=== PATIENT | female | born 1935 | race Caucasian/White ===

== ENCOUNTER 2021-01-28 14:28 | Emergency (ER) | payer MEDICARE, SELFPAY ==
--- NOTE | ~2021-01-28 | CT_ITS ---
EXAMINATION: CT HEAD WITHOUT CONTRAST CT CERVICAL SPINE WITHOUT CONTRAST CLINICAL INFORMATION: Fall, head injury, headache, dizziness. COMPARISON: None TECHNIQUE: Contiguous axial imaging of the head was performed without the administration of IV contrast. Axial multidetector volumetric images were also performed through the cervical spine without contrast. Multiplanar reconstructed images in coronal and sagittal orientations were submitted. This CT examination was performed using dose optimization techniques as appropriate, variously including the following: *Automated exposure control. *Adjustment of mA and/or kV according to patient size (this includes techniques or standardized protocols for targeted exams where dose is matched to indication/reason for exam; i.e. extremities or head). *Use of iterative reconstruction technique. DLP: 822 mGy-cm FINDINGS: HEAD: There is no evidence of acute intracranial hemorrhage or territorial infarction. No abnormal mass-effect or midline shift. No extra-axial fluid collections. Atan-tr-emlpl matter differentiation is well preserved. The ventricles are normal in size and configuration. Bilateral basal ganglia calcification. Mild periventricular and deep white matter hypodensities suggestive of chronic microangiopathic changes. No acute calvarial fracture. The sinuses and mastoid air cells are clear. CERVICAL SPINE: Mild anterolisthesis of C6 on C7. Vertebral body alignment is otherwise maintained. Predental space is maintained. Vertebral body heights are normal. No visible acute fracture of the vertebral bodies or posterior elements. The craniocervical and atlantoaxial articulations are normal. Moderate C4-C5 disc degeneration. Disc degenerative changes to a lesser degree otherwise in the cervical spine. Multilevel prominent facet degeneration, including areas of partial osseous fusion at the facet joint. No prevertebral soft tissue swelling. No suspicious thyroid findings seen. Bilateral apical pleural-parenchymal scarring. CT/CT cervical spine wo con IMPRESSION: 1. No CT evidence of acute intracranial pathology. 2. No CT evidence of acute fracture or malalignment in the cervical spine. 3. Cervical spondylosis as detailed above. 4. Bilateral apical pleural-parenchymal scarring.
--- NOTE | ~2021-01-28 | XR_ITS ---
EXAMINATION: XR CHEST CLINICAL INFORMATION: Hypertension, leg swelling. COMPARISON: None TECHNIQUE: 2 views of the chest were obtained. FINDINGS: The lungs are well-expanded and clear. The heart size and pulmonary vascularity is normal. There is mild dextroscoliosis of dorsal spine. No lytic process. XR/XR chest 2V IMPRESSION: Unremarkable chest exam.
[2021-01-28 14:32] VITALS: BP 225/93; PULSE 78; RESP 18; TEMP 36.6; O2SAT 99; BMI 26.6
--- NOTE | 2021-01-28 16:01 | ECG_ITS ---
Test Reason : FALL Blood Pressure : / mmHG Vent. Rate : 073 BPM Atrial Rate : 073 BPM P-R Int : 156 ms QRS Dur : 076 ms QT Int : 410 ms P-R-T Axes : 072 064 068 degrees QTc Int : 451 ms Normal sinus rhythm Possible Left atrial enlargement Nonspecific ST abnormality Abnormal ECG When compared with ECG of 27-JUL-2012 12:05, No significant change was found Referred By: Sahnnon Chan Electronically Signed By:Alfred Loving
--- NOTE | 2021-01-28 16:02 | ED_ITS ---
HPI - General Adult General Chief complaint: General Medical Stated complaint: fall - head injury Time Seen by Provider: 01/28/21 15:50 Source: patient Mode of arrival: ambulatory Limitations: no limitations History of Present Illness HPI narrative: 85-year-old female with a past medical history of hypertension anxiety here with complaints of headache and dizziness. The patient tells me 3 days ago she was getting into her car and felt dizzy so she hit the right side of her head on her car door. There was no loss of consciousness. Since then she has had a generalized headache. No vision changes from baseline. No nausea, vomiting, weakness, numbness, tingling. Patient tells me that she has had occasional dizzy episodes. She recently had a Holter monitor for complaints of palpitations which showed frequent PVCs and so she was started on metoprolol 25 mg. Patient tells me since starting this she has had dizziness with position changes. She has also noticed some slight edema to her lower extremities and took an extra dose of hydrochlorothiazide today. She is on 12.5 mg b.i.d.. No weight gain, shortness of breath, chest pain. No recent travel or sick exposure.. No anticoagulation Related Data Previous Rx's Medication Instructions Recorded amlodipine [Norvasc] 2.5 mg PO DAILY #20 tab 01/28/21 Allergies Allergy/AdvReac Type Severity Reaction Status Date / Time Latex, Natural Rubber Allergy Intermediate RASH Unverified 06/28/20 14:53 [LATEX, NATURAL RUBBER] Review of Systems Review of Systems: Yes all other systems are reviewed and are negative Constitutional: Constitutional: Reports no additional constitutional complaints, Denies body ache(s), Denies chills, Denies fever(s), Reports headache(s) and Denies weakness Eyes: Eyes: Reports no additional eye complaints and Denies change in vision ENT: Reports system reviewed and no additional complaints, except as documented, Reports dizziness, Reports headache(s), Denies nasal congestion, Den ies nasal discharge and Denies neck pain Cardiovascular: Cardiovascular: Reports no additional cardiovascular complaints, Denies chest pain, Reports leg edema and Denies dyspnea Respiratory: Respiratory: Reports no additional respiratory complaints, Denies cough and Denies dyspnea Gastrointestinal: Gastrointestinal: Reports no additional gastrointestinal complaints, Denies abdominal pain, Denies diarrhea, Denies nausea and Denies vomiting Genitourinary: Genitourinary: Reports no additional female genitourinary complaints and Denies urinary incontinence Musculoskeletal: Musculoskeletal: Reports no additional musculoskeletal com plaints, Denies back pain, Denies arthralgias, Denies joint swelling, Denies neck pain, Denies numbness and Denies tingling Integumentary/Breasts: Skin/Breast: Reports system reviewed and no additional complaints, except as docu and Denies rash Neurologic: Reports system reviewed and no additional complaints, except as documented, Denies Abnormal speech present, Reports dizziness, Reports headache(s), Denies numbness, Denies tingling and Denies weakness [facility] Past Medical History Attestation statement: The following information was validated with the patient. Source: old records reviewed and nursing notes reviewed Medical History Anxiety HTN (hypertension) Social History Social History Alcohol intake: never Smoking Status: Never smoker Use of substances other than those prescribed or required for medical reasons: No Advance Directives: No Advance Directives Information Provided: No Physical Exam Vital Signs: Vital Signs: Last Vital Signs Temp 98.0 F 01/28/21 19:25 Pulse 76 01/28/21 19:25 Resp 18 01/28/21 19:25 BP 193/76 H 01/28/21 19:25 Pulse Ox 97 01/28/21 19:25 Body Mass Index 26.6 Const: General: cooperative, healthy appearing, comfortable and no acute distress Orientation/consciousness: patient oriented x3 Limitations: no limitations HENMT: Head: Yes normal to inspection and Yes Velez's sign (Right side) Ears: hearing grossly normal bilaterally, TM normal on the right and TM normal on the left General nose exam: Normal external nose present Face and sinus: Yes normal facial exam Mouth: Normal oral and palatal mucosa present Throat: Yes posterior oropharynx normal Eyes: General: appearance normal, both eyes and all related structures Visual Mcpherson: normal visual mcpherson by confrontation Alignment and Position: alignment normal Periorbital: periorbital findings normal Eyelids: Yes eyelids normal Conjunctivae: conjunctivae normal Sclerae: sclerae normal Corneas: corneas normal Pupils: Equal, round and reactive pupils present EOM: EOMs intact bilaterally Direct Ophthalmoscopy: normal light reflex and no photophobia Neck: Neck: Yes normal visual inspection, Yes full ROM and Yes no lymphadenopathy Chest: Chest palpation & inspection: normal inspection of the chest Resp: Effort & Inspection: normal respiratory effort Auscultation: clear to auscultation bilaterally Cardio: Rate: regular rate Rhythm: regular rhythm Peripheral pulses: Peripheral pulses 2+ throughout GI: Inspection: Yes normal to inspection Palpation (GI): Soft to palpation and nontender Auscultation: normal bowel sounds Back/Spine/Pelvis: Thoracic/Lumbar Spine: thoracic and lumbar spine normal to inspection Skin: General skin exam: no rashes or lesions noted Neuro: General: patient oriented x3, no focal motor deficits and normal sensation to monofilament Cranial nerves: Yes CN's II-XII intact bilaterally, Yes Equal, round and reactive pupils present, Yes Bilaterally intact EOM present, Yes Nystagmus not present, Yes Normal facial strength present, Yes Midline tongue present and Yes Normal gag reflex present Cognition (Neuro): normal cognition Speech: No Abnormal speech present Gait exam (Neuro): Normal gait present Motor exam (neuro): 5/5 motor strength present throughout Sensory Exam: Normal double simultaneous stimulation for sensation Coordination: [id number] test normal, [id number] test normal and tandem gait normal Extrem: General: Yes normal to inspection, Yes no pedal edema and Yes no calf tenderness Course Course Course Narrative: 85-year-old female here with complaints of headache, high blood pressure for the last 2 days. Patient tells me she has had headaches and she had a head injury 3 days ago. She has been having intermittent dizzy spells since starting metoprolol and this caused her to fall 3 days ago. No anticoagulation. Neuro is intact. Patient is mildly hypertensive on arrival. Will need CT head, neck, EKG, chest x-ray, labs. 2015-CT head and neck negative. Chest x-ray negative. EKG shows some nonspecific changes. Labs show a mildly elevated troponin however repeat troponin is delta. No chest pain. BNP is 214. No clinical signs symptoms concerning for fluid overload. Discussed this with the patient. She is taking hydrochlorothiazide. We discussed low-sodium diet and compression stockings. Patient's blood pressure did trend down without intervention and discharge her blood pressure is 190/80. She tells me she was taking metoprolol until a few days ago and this was discontinued by her set up [employer] due to concern that this was causing her dizziness. We discussed that she likely needs to be on an antihypertensive. We will start her on a very low dose of amlodipine. She will call her set up [employer] for follow-up this week and be monitor her blood pressures at home. Reviewed worrisome signs and symptoms and when to return to the em ergency department. Comfortable discharge home. Medical Decision Making MDM Narrative Medical decision making narrative: medication side effect, anemia, electrolyte abnormality, ACS, ICH versus lesion Medical Records Medical records reviewed: Yes I reviewed the patient's medical records. Lab Data Lab results reviewed: Yes I reviewed the patient's lab results. Result diagrams: 01/28/21 16:36 01/28/21 16:36 Labs: Lab Results 01/28/21 01/28/21 01/28/21 Range/Units 16:36 16:36 16:36 WBC 9.8 (4.8-10.8) X10*3/uL RBC 4.77 (4.20-5.50) X10*6/uL Hgb 13.8 (12.0-16.0) g/dl Hct 41.4 (37-47) % MCV 86.8 (80-98) fL MCH 28.9 (27.0-33.0) pg MCHC 33.3 (31.0-35.0) g/dl RDW 12.4 (11.0-16.0) % Plt Count 241 (160-400) X10*3/uL MPV 10.0 (9.4-12.3) fL Immature Gran % (Auto) 0.3 (0.0-0.4) % Neut % (Auto) 70.6 (45-73) % Lymph % (Auto) 18.9 L (20-40) % [place] % (Auto) 8.9 (2-11) % Eos % (Auto) 1.0 (0-4) % Baso % (Auto) 0.3 (0-2) % Lymph # (Auto) 1.8 (1.2-4.9) X10*3/uL [place] # (Auto) 0.9 (0.1-1.2) X10*3/uL Eos # (Auto) 0.1 (0.0-0.4) X10*3/uL Baso # (Auto) 0.0 (0.0-0.2) X10*3/uL Abs Immat Gran (auto) 0.03 (0.00-0.03) X10*3/uL Absolute Neuts (auto) 6.9 (2.0-8.3) X10*3/uL Absolute Nucleated RBC 0.000 (0.0-0.012) X10*3/uL Nucleated RBC % (auto) 0.0 (0.0-0.2) /100WBC Hold Blue Top SEE NOTE Sodium 139 (135-145) mmol/L Potassium 3.8 (3.3-5.1) mmol/L Chloride 96 (96-108) mmol/L Carbon Dioxide 32 H (22-29) mmol/L Anion Gap 15 (12-20) BUN 11 (9-16) mg/dL Creatinine 0.79 (0.5-1.4) mg/dL Estim Creat Clear Calc 46.2 Estimated GFR > 60 Random Glucose 94 (60-115) mg/dL Calcium 10.5 H (8.4-10.2) mg/dL Magnesium (1.6-2.6) mg/dL Total Bilirubin 0.9 (0.0-1.0) mg/dL Direct Bilirubin 0.3 (0.0-0.5) mg/dL AST 20 (5-31) U/L ALT 27 (0-31) U/L Alkaline Phosphatase 66 (39-117) U/L Troponin I High Sens (<3.5-17.0) ng/L B-Natriuretic Peptide (<100) pg/mL Total Protein 8.1 H (6.5-8.0) g/dL Albumin 4.6 (3.5-5.0) g/dL Urine Color Urine Appearance Urine pH (5.0-8.0) Ur Specific [place] (1.005-1.025) Urine Protein (NEG-TRACE) MG/DL Urine Glucose (UA) (NEG) MG/DL Urine Ketones (NEG) MG/DL Urine Blood (NEG) Urine Nitrite (NEG) Ur Leukocyte Esterase (NEG) Urine RBC (0) /HPF Urine WBC (0-4) /HPF Ur Squamous Epith Cells /LPF Urine Bacteria /LPF 01/28/21 01/28/21 01/28/21 Range/Units 16:36 16:36 18:16 WBC (4.8-10.8) X10*3/uL RBC (4.20-5.50) X10*6/uL Hgb (12.0-16.0) g/dl Hct (37-47) % MCV (80-98) fL MCH (27.0-33.0) pg MCHC (31.0-35.0) g/dl RDW (11.0-16.0) % Plt Count (160-400) X10*3/uL MPV (9.4-12.3) fL Immature Gran % (Auto) (0.0-0.4) % Neut % (Auto) (45-73) % Lymph % (Auto) (20-40) % [place] % (Auto) (2-11) % Eos % (Auto) (0-4) % Baso % (Auto) (0-2) % Lymph # (Auto) (1.2-4.9) X10*3/uL [place] # (Auto) (0.1-1.2) X10*3/uL Eos # (Auto) (0.0-0.4) X10*3/uL Baso # (Auto) (0.0-0.2) X10*3/uL Abs Immat Gran (auto) (0.00-0.03) X10*3/uL Absolute Neuts (auto) (2.0-8.3) X10*3/uL Absolute Nucleated RBC (0.0-0.012) X10*3/uL Nucleated RBC % (auto) (0.0-0.2) /100WBC Hold Blue Top Sodium (135-145) mmol/L Potassium (3.3-5.1) mmol/L Chloride (96-108) mmol/L Carbon Dioxide (22-29) mmol/L Anion Gap (12-20) BUN (9-16) mg/dL Creatinine (0.5-1.4) mg/dL Estim Creat Clear Calc Estimated GFR Random Glucose (60-115) mg/dL Calcium (8.4-10.2) mg/dL Magnesium 2.0 (1.6-2.6) mg/dL Total Bilirubin (0.0-1.0) mg/dL Direct Bilirubin (0.0-0.5) mg/dL AST (5-31) U/L ALT (0-31) U/L Alkaline Phosphatase (39-117) U/L Troponin I High Sens 8.5 (<3.5-17.0) ng/L B-Natriuretic Peptide 214 H (<100) pg/mL Total Protein (6.5-8.0) g/dL Albumin (3.5-5.0) g/dL Urine Color YELLOW Urine Appearance CLEAR Urine pH 7.5 (5.0-8.0) Ur Specific [place] 1.010 (1.005-1.025) Urine Protein NEG (NEG-TRACE) MG/DL Urine Glucose (UA) NEG (NEG) MG/DL Urine Ketones NEG (NEG) MG/DL Urine Blood NEG (NEG) Urine Nitrite NEG (NEG) Ur Leukocyte Esterase 1+ H (NEG) Urine RBC 0 (0) /HPF Urine WBC 5-9 H (0-4) /HPF Ur Squamous Epith Cells 1+ /LPF Urine Bacteria TRACE /LPF 01/28/21 Range/Units 19:29 WBC (4.8-10.8) X10*3/uL RBC (4.20-5.50) X10*6/uL Hgb (12.0-16.0) g/dl Hct (37-47) % MCV (80-98) fL MCH (27.0-33.0) pg MCHC (31.0-35.0) g/dl RDW (11.0-16.0) % Plt Count (160-400) X10*3/uL MPV (9.4-12.3) fL Immature Gran % (Auto) (0.0-0.4) % Neut % (Auto) (45-73) % Lymph % (Auto) (20-40) % [place] % (Auto) (2-11) % Eos % (Auto) (0-4) % Baso % (Auto) (0-2) % Lymph # (Auto) (1.2-4.9) X10*3/uL [place] # (Auto) (0.1-1.2) X10*3/uL Eos # (Auto) (0.0-0.4) X10*3/uL Baso # (Auto) (0.0-0.2) X10*3/uL Abs Immat Gran (auto) (0.00-0.03) X10*3/uL Absolute Neuts (auto) (2.0-8.3) X10*3/uL Absolute Nucleated RBC (0.0-0.012) X10*3/uL Nucleated RBC % (auto) (0.0-0.2) /100WBC Hold Blue Top Sodium (135-145) mmol/L Potassium (3.3-5.1) mmol/L Chloride (96-108) mmol/L Carbon Dioxide (22-29) mmol/L Anion Gap (12-20) BUN (9-16) mg/dL Creatinine (0.5-1.4) mg/dL Estim Creat Clear Calc Estimated GFR Random Glucose (60-115) mg/dL Calcium (8.4-10.2) mg/dL Magnesium (1.6-2.6) mg/dL Total Bilirubin (0.0-1.0) mg/dL Direct Bilirubin (0.0-0.5) mg/dL AST (5-31) U/L ALT (0-31) U/L Alkaline Phosphatase (39-117) U/L Troponin I High Sens 10.6 (<3.5-17.0) ng/L B-Natriuretic Peptide (<100) pg/mL Total Protein (6.5-8.0) g/dL Albumin (3.5-5.0) g/dL Urine Color Urine Appearance Urine pH (5.0-8.0) Ur Specific [place] (1.005-1.025) Urine Protein (NEG-TRACE) MG/DL Urine Glucose (UA) (NEG) MG/DL Urine Ketones (NEG) MG/DL Urine Blood (NEG) Urine Nitrite (NEG) Ur Leukocyte Esterase (NEG) Urine RBC (0) /HPF Urine WBC (0-4) /HPF Ur Squamous Epith Cells /LPF Urine Bacteria /LPF Imaging Data Chest x-ray: Attestation: I personally reviewed and interpreted this imaging study as follows: Radiologist's impression: EXAMINATION: XR CHEST CLINICAL INFORMATION: Hypertension, leg swelling. COMPARISON: None TECHNIQUE: 2 views of the chest were obtained. FINDINGS: The lungs are well-expanded and clear. The heart size and pulmonary vascularity is normal. There is mild dextroscoliosis of dorsal spine. No lytic process. XR/XR chest 2V IMPRESSION: Unremarkable chest exam. CT cervical/head: Attestation: I personally reviewed and interpreted this imaging study as follows: Radiologist's impression: IMPRESSION: 1. No CT evidence of acute intracranial pathology. 2. No CT evidence of acute fracture or malalignment in the cervical spine. 3. Cervical spondylosis as detailed above. 4. Bilateral apical pleural-parenchymal scarring. ECG Data Attestation: I personally reviewed and interpreted this ECG as follows: Interpretation: NSR with rate 73, normal pr, normal qrs, normal qtc, nonspecific st changes leads v1, v2 Discharge Plan Discharge Clinical Impression: Hypertension, Head injury, Elevated brain natriuretic peptide (BNP) level Patient Disposition: Home, Self-Care Instructions: Head Injury (ED), Hypertension (ED) Additional Instructions: Continue your hydrochlorothiazide Low sodium diet, compression stockings as discussed Start norvasc tomorow morning. Your blood pressure was elevated today (225/93, 192/80, 193/76). Continue to monitor at home. Follow-up with your set up [employer] this week as discussed Prescriptions: New amlodipine [Norvasc] 2.5 mg tablet 2.5 mg PO DAILY Qty: 20 RF: 0 Referrals: Mauricio Stone MD [Primary Care Provider] - 2 days Interventions: ED Discharge Assessment Last Done: 01/28/21 20:20 Discharge Date/Time: 01/28/21 20:20
[2021-01-28 16:42] LABS: MANUAL DIFF FLAG NO
[2021-01-28 16:45] LABS: Basophils Percent Auto 0.3 % (0-2); Eosinophils Absolute Auto 0.1 X10*3/uL (0.0-0.4); Hematocrit 41.4 % (37-47); Hemoglobin 13.8 g/dl (12.0-16.0); Imm Gran Abs Auto 0.03 X10*3/uL (0.00-0.03); Imm Gran Pct Auto 0.3 % (0.0-0.4); Lymphocytes Absolute Auto 1.8 X10*3/uL (1.2-4.9); Lymphocytes Percent Auto 18.9 % (20-40); Mean Corpuscular HGB Conc 33.3 g/dl (31.0-35.0); Mean Corpuscular Hemoglobin 28.9 pg (27.0-33.0); Mean Corpuscular Volume 86.8 fL (80-98); Monocytes Absolute Auto 0.9 X10*3/uL (0.1-1.2); Monocytes Percent Auto 8.9 % (2-11); Neutrophils Absolute Auto 6.9 X10*3/uL (2.0-8.3); Neutrophils Percent Auto 70.6 % (45-73); Platelet Count 241 X10*3/uL (160-400); Red Blood Count 4.77 X10*6/uL (4.20-5.50); Red Cell Distribution Width 12.4 % (11.0-16.0); White Blood Count 9.8 X10*3/uL (4.8-10.8)
[2021-01-28 17:34] LABS: Alanine Aminotransferase 27 U/L (0-31); Albumin Level 4.6 g/dL (3.5-5.0); Alkaline Phosphatase 66 U/L (39-117); Anion Gap 15 (12-20); Aspartate Amino Transferase 20 U/L (5-31); Bilirubin Direct 0.3 mg/dL (0.0-0.5); Bilirubin Total 0.9 mg/dL (0.0-1.0); Blood Urea Nitrogen 11 mg/dL (9-16); Calcium 10.5 mg/dL (8.4-10.2); Carbon Dioxide 32 mmol/L (22-29); Chloride 96 mmol/L (96-108); Creatinine Clr Calc Pharmacy 46.2; Estimated Glomerular Filt Rate > 60; Glucose Random 94 mg/dL (60-115); Potassium 3.8 mmol/L (3.3-5.1); Sodium 139 mmol/L (135-145); Total Protein 8.1 g/dL (6.5-8.0)
[2021-01-28 17:35] LABS: B Type Natriuretic Peptide 214 pg/mL (<100); Troponin-I High Sensitivity 8.5 ng/L (<3.5-17.0)
[2021-01-28 18:36] LABS: Glucose Urine UA NEG (NEG); Leukocyte Esterase Urine 1+ (NEG); Nitrite Urine NEG (NEG); PH 7.5 (5.0-8.0); UACC Culture Trigger YES; Urine Blood NEG (NEG); Urine Ketones NEG (NEG); Urine Protein NEG (NEG-TRACE)
[2021-01-28 18:43] LABS: Appearance Urine CLEAR; Color Urine YELLOW
[2021-01-28 18:57] VITALS: BP 192/80; PULSE 90; RESP 20
[2021-01-28 19:15] LABS: Bacteria Urine TRACE /LPF; RBC Urine 0 /HPF (0); Squamous Epithelial Cell Urine 1+ /LPF
[2021-01-28 19:25] VITALS: BP 193/76; PULSE 76; RESP 18; TEMP 36.7; O2SAT 97
[2021-01-28 20:08] LABS: Troponin-I High Sensitivity 10.6 ng/L (<3.5-17.0)
== END 2021-01-28 20:20 | disposition home or self-care (01) ==
PROVIDERS: Nurse Practitioner Family; Emergency Provider Emergency Medicine; PCP Family Medicine
DX: S09.90XA Unspecified injury of head, initial encounter (principal); G44.309 Post-traumatic headache, unspecified, not intractable; R60.0 Localized edema; M54.2 Cervicalgia; M54.5 Low back pain; I10 Essential (primary) hypertension; Y29.XXXA Contact with blunt object, undetermined intent, initial encounter; Y93.9 Activity, unspecified; Y92.810 Car as the place of occurrence of the external cause; Y99.9 Unspecified external cause status; Z79.899 Other long term (current) drug therapy; R79.89 Other specified abnormal findings of blood chemistry
CPT/HCPCS: 36415; 70450; 71046; 72125; 80048; 80076; 81001; 81003; 83735; 83880; 84484; 85025; 87086; 93005; 99284

== ENCOUNTER 2023-01-28 07:56 | Outpatient (REF) | payer MEDICARE, SELFPAY ==
--- NOTE | ~2023-01-28 | US_ITS ---
EXAMINATION: US VENOUS ULTRASOUND WITH DOPPLER LOWER EXTREMITY, RIGHT CLINICAL INFORMATION: Swelling, localized edema. COMPARISON: None available. TECHNIQUE: Ultrasound of the deep veins is performed from the hip to the calf with compression sonography and color and pulse Doppler assessment. Spectral analysis with color-flow imaging is performed. FINDINGS: The common femoral vein is compressible and exhibits a normal phasic waveform; this suggests that the iliac veins are widely patent above. Within the proximal thigh, the visualized profunda femoris vein is normal. The examined greater saphenous vein and saphenofemoral junction are normal. Superficial femoral vein is patent in the proximal, mid and distal thigh. Popliteal vein is normal to the level of the trifurcation. On compression orellana scale and color Doppler images, the visualized deep calf veins are grossly patent. No evidence of Betancourt's cyst. US/US venous duplex LE RT IMPRESSION: No evidence of deep vein thrombosis in the right lower extremity.
== END 2023-01-28 07:57 | disposition home or self-care (01) ==
LOC: HO.US 07:56
PROVIDERS: PCP Family Medicine; Visit Provider Nurse Practitioner Family
DX: R60.0 Localized edema (principal); M79.604 Pain in right leg
CPT/HCPCS: 93971

== ENCOUNTER → 2023-02-17 14:09 | Outpatient (BNVA) | payer MEDICARE, SELFPAY | PROVIDERS: PCP Family Medicine; Visit Provider Surgery Vascular Surgery | DX: I73.9 Peripheral vascular disease, unspecified (principal); I83.11 Varicose veins of right lower extremity with inflammation; I65.23 Occlusion and stenosis of bilateral carotid arteries | CPT/HCPCS: 99202 ==

== ENCOUNTER 2023-03-04 12:39 | Outpatient (REF) | payer MEDICARE, SELFPAY ==
--- NOTE | ~2023-03-04 | US_ITS ---
EXAMINATION: US EXTRACRANIAL CAROTID DUPLEX, BILATERAL CLINICAL INFORMATION: Carotid stenosis. History of right endarterectomy in 2006. COMPARISON: Carotid ultrasound 07/27/2018. TECHNIQUE: Real-time ultrasound and Doppler techniques (integrating B-mode 2-D vascular images, Doppler spectral analysis and color-flow Doppler imaging) were utilized to interrogate the extracranial carotid arteries, the vertebral arteries and proximal subclavian arteries bilaterally. The degree of stenosis is determined by criteria similar to NASCET. FINDINGS: Right Side: 1. There is mild atherosclerotic plaque seen in the bifurcation/proximal ICA region. 2. The common carotid artery PSV proximally is 64 cm/s and distally 65 cm/s. 3. The proximal internal carotid artery velocities are 54 cm/s systolic and 13 cm/s diastolic. 4. The proximal external carotid artery PSV is 118 cm/s. 5. The vertebral artery shows antegrade flow. 6. The subclavian artery waveforms are normal. Left Side: 1. There is moderate atherosclerotic plaque seen in the bifurcation/proximal ICA region. 2. The common carotid artery PSV proximally is 73 cm/s and distally 104 cm/s. 3. The proximal internal carotid artery velocities are 86 cm/s systolic and 17 cm/s diastolic. 4. The proximal external carotid artery PSV is 104 cm/s. 5. The vertebral artery shows antegrade flow. 6. The subclavian artery waveforms are normal. US/US carotid duplex BI IMPRESSION: 1. RIGHT: Minimal, non-hemodynamically significant stenosis of the proximal right internal carotid artery corresponding to a 0-49% stenosis by velocity criteria. 2. LEFT: Minimal, non-hemodynamically significant stenosis of the proximal left internal carotid artery corresponding to a 0-49% stenosis by velocity criteria. 3. There is no change in the category severity of disease when compared to the previous study dated 07/27/2018.
--- NOTE | ~2023-03-04 | US_ITS ---
EXAMINATION: US VENOUS ULTRASOUND WITH DOPPLER LOWER EXTREMITY, BILATERAL CLINICAL INFORMATION: EXAMINATION: RIGHT and LEFT LOWER EXTREMITY VENOUS ULTRASOUND (Reflux Exam) CLINICAL INDICATION: leg pain and varicose veins. History of left greater saphenous vein stripping many years ago. COMPARISON: None TECHNIQUE: Color flow triplex imaging and compression Doppler was performed to evaluate both the deep and the superficial systems bilaterally. To evaluate the superficial system, the examination was performed in the upright position. Color-flow Doppler ultrasound and compression ultrasound were utilized. In addition, maneuvers were utilized to demonstrate reflux. FINDINGS: 1. DEEP VENOUS ULTRASOUND OF THE RIGHT LOWER EXTREMITY: Respiratory variation, normal compression and augmented flow are noted in the right common femoral vein as well as the right popliteal vein and there is no evidence of deep venous thrombosis at these locations. There is no evidence of reflux in the deep system in either the common femoral vein or the popliteal vein. There is no evidence of a Betancourt's cyst. 2. SUPERFICIAL ULTRASOUND WITH DOPPLER OF RIGHT LOWER EXTREMITY: The right great saphenous vein at the saphenofemoral junction measures 6 mm, at the mid thigh 5 mm, [id number] 3 mm, [id number] 2 mm, at mid calf 2 mm and at the ankle measures 2 mm. There is significant right greater saphenous vein reflux. This measures greatest 2.4 seconds in the mid thigh and mid calf. There is an accessory right greater saphenous vein that measures 4 to 6 mm and demonstrates 2 seconds reflux. The right small saphenous vein measures 2 mm and shows no reflux. Project Reservoir Engineer in the distal calf measuring 2 mm with 1.5 second reflux. Project Reservoir Engineer in the proximal calf measuring 2 mm without reflux. The prostate is in the thigh and calf measuring 3 to 4 mm with reflux, maximum 2.5 seconds in the mid calf. 3. DEEP VENOUS ULTRASOUND OF THE LEFT LOWER EXTREMITY: Respiratory variation, normal compression and augmented flow are noted in the left common femoral vein as well as the left popliteal vein and there is no evidence of deep venous thrombosis at these locations. There is no evidence of reflux in the deep system in either the common femoral vein or the popliteal vein. . There is no evidence of a Betancourt's cyst. 4. SUPERFICIAL ULTRASOUND WITH DOPPLER OF LEFT LOWER EXTREMITY: Left great saphenous vein at the saphenofemoral junction measures 5 mm. The remainder of the left greater saphenous vein is not seen. There is no reflux demonstrated in the left great saphenous vein. The left small saphenous vein measures 1 mm and shows no reflux. There is a varicosity at the knee measuring 2 mm. This demonstrates 2.4 seconds reflux. US/US venous duplex LE BI IMPRESSION: 1. No evidence of reflux or thrombus in the common femoral veins or popliteal veins bilaterally. 2. Right: Significant right greater saphenous vein reflux. Reflux in the lateral accessory right greater saphenous vein. Reflux in a cotton ball bagger in the calf and multiple varicosities in the thigh and calf. 3. Left: Left greater saphenous vein not seen post stripping. Reflux in a varicosity at the knee. COMPARISON: None available. TECHNIQUE: Ultrasound of the deep veins is performed from the hip to the calf with compression sonography and color and pulse Doppler assessment. Spectral analysis with color-flow imaging is performed. FINDINGS: RIGHT: There is normal venous compression and respiratory variation and augmented flow. The visualized common femoral vein, superficial femoral vein, profunda femoral vein, popliteal vein, and the trifurcation region shows no evidence of deep venous thrombosis. There is no significant popliteal fossa cyst. LEFT: There is normal venous compression and respiratory variation and augmented flow. The visualized common femoral vein, superficial femoral vein, profunda femoral vein, popliteal vein, and the trifurcation region shows no evidence of deep venous thrombosis. There is no significant popliteal fossa cyst. If the patient's symptoms persist, followup ultrasound in 5 days 7 days might be of value to exclude proximal propagation from a non-visualized calf vein. IMPRESSION: No DVT demonstrated in the lower extremity.
== END 2023-03-04 12:40 | disposition home or self-care (01) ==
LOC: HO.US 12:39
PROVIDERS: PCP Family Medicine; Visit Provider Surgery Vascular Surgery
DX: I65.23 Occlusion and stenosis of bilateral carotid arteries (principal); I83.11 Varicose veins of right lower extremity with inflammation
CPT/HCPCS: 93880; 93970

== ENCOUNTER → 2023-03-19 12:42 | Outpatient (BNVA) | payer MEDICARE, SELFPAY | PROVIDERS: PCP Family Medicine; Visit Provider Surgery Vascular Surgery | DX: I83.11 Varicose veins of right lower extremity with inflammation (principal) | CPT/HCPCS: 99212 ==

== ENCOUNTER 2023-05-01 10:19 | Outpatient (AMB) | payer MEDICARE, SELFPAY ==
--- NOTE | 2023-05-01 10:30 | A.OFFVIS_ITS ---
Intake Intake Visit Reasons: Right GSV Venaseal Intake Note: Patient is here for a Right GSV Venaseal Allergies Latex, Natural Rubber [LATEX, NATURAL RUBBER] Allergy (Intermediate, Verified 05/01/23 10:30) [facility] Medical History Anxiety HTN (hypertension) Social History Alcohol intake: never Office Procedures Vascular Office Procedure Details Details: Diagnosis: Right Leg varicose veins with inflammation Procedure: Endovenous Ablation of the right Great Saphenous Vein with VenaSeal Closure System Anesthesia: Local infiltration 5 cc, Estimated Blood Loss: min Specimen: none Duplex ultrasound was used to map out the insufficient saphenous vein, and access was determined and marked on the overlying skin. The depth and diameter of the vein(s) to be treated was documented. The patient was placed supine on the procedure table and the leg was prepped and draped using sterile technique. Ultasound guidance was again used to localize the access site. 1% lidocaine was injected as a local anesthetic in the subcutaneous tissues at the target location in the GSV in the lower leg. Using ultrasound guidance, access was gained at this location with the 19 gauge thin walled access needle and followed by introduction of a short guidewire, location confirmed with ultrasound. A small, 3 mm incision was made at the access site to allow for introduction and placement of the 7 Fr x7cm introducer/dilator. The dilator and guidewire were removed. The 0.035 guidewire from the VenaSeal kit was then introduced and positioned at the saphenofemoral junction using ultrasound guidance. The 80 cm 7 Fr introducer sheath/dilator was positioned 5cm from the saphenofemoral junction. The guidewire and dilator were removed, and the remaining sheath was flushed with sterile saline, with the syringe remaining in place prior to the next steps. The cyanoacrylate adhesive was precisely primed into the 5 F delivery catheter and this catheter/syringe combination was attached within the dispenser gun. This assembly was introduced through the 7F sheath and positioned 5 cm caudal of the saphenofemoral junction under ultrasound guidance. The steps from the IFU were followed for dispensing amounts, locations and compression times, 2 aliquots proximally with 3 minutes of compression, and 1 aliquot every 3 cm distally with 30 sec of compression along the course of the vessel. Following the last injection and compression sequence, the catheter and introducer sheath were pulled out from the access site. Hemostasis was achieved with manual compression and an adhesive bandage was applied to the incision. Ultrasound confirmed complete coaptation and closure of the treated segments of the GSV, and the absence of any DVT at the saphenofemoral junction. Treatment time was approximately 5 minutes and the vein length treated was 25 cm. The drapes were removed and the patient cleaned and prepared for discharge. Post op ultrasound check is scheduled for 48-72 hours and the patient was given written post-op instructions. 05785 - Endoven Ther Chem Adhes 1st All charges added?: Procedure code (CPT) selection complete Coding Level of Care Code Procedure Only Diagnoses CPT Codes Details - Vascular 3: 33621 - Endoven Ther Chem Adhes 1st ([id number])
== END 2023-05-01 11:41 | disposition home or self-care (01) ==
PROVIDERS: PCP Family Medicine; Visit Provider Surgery Vascular Surgery
DX: I83.11 Varicose veins of right lower extremity with inflammation (principal)
CPT/HCPCS: 36482

== ENCOUNTER → 2023-05-01 10:19 | Outpatient (BNVA) | payer MEDICARE, SELFPAY | PROVIDERS: PCP Family Medicine; Visit Provider Surgery Vascular Surgery | DX: I83.11 Varicose veins of right lower extremity with inflammation (principal) | CPT/HCPCS: 36482 ==

== ENCOUNTER 2023-05-04 13:10 | Outpatient (REF) | payer MEDICARE, SELFPAY ==
--- NOTE | ~2023-05-04 | US_ITS ---
EXAMINATION: TRIPLEX SCANNING OF RIGHT LOWER EXTREMITY; SUPERFICIAL ULTRASOUND WITH DOPPLER OF RIGHT LOWER EXTREMITY CLINICAL INFORMATION: Status post ablation the right great saphenous vein . COMPARISON: 03/04/2023. TECHNIQUE: Color flow triplex imaging and compression Doppler were performed as well as superficial ultrasound with Doppler. FINDINGS: TRIPLEX SCANNING OF RIGHT LOWER EXTREMITY: Respiratory variation, normal compression and augmented flow are noted throughout the lower extremity. The visualized common femoral vein, femoral vein, profunda femoral vein, popliteal vein and the calf veins show no evidence of deep venous thrombosis. There is no evidence of Betancourt's cyst. SUPERFICIAL ULTRASOUND WITH DOPPLER OF RIGHT LOWER EXTREMITY: The right great saphenous vein is occluded from the presumed access site to just before the saphenofemoral junction. There is no extension of thrombus into the deep system. US/US venous duplex LE RT IMPRESSION: 1. Normal triplex scan of the right without evidence of deep venous thrombosis. 2. Excellent appearance status post ablation of the right great saphenous vein.
== END 2023-05-04 13:11 | disposition home or self-care (01) ==
LOC: HO.US 13:10
PROVIDERS: PCP Family Medicine; Visit Provider Surgery Vascular Surgery
DX: M79.604 Pain in right leg (principal)
CPT/HCPCS: 93971

== ENCOUNTER 2023-06-01 12:55 | Outpatient (AMB) | payer MEDICARE, SELFPAY ==
--- NOTE | 2023-06-01 13:03 | A.OFFVIS_ITS ---
Intake Vital Signs 06/01/23 13:04 Height 5 ft Weight 135 lb BMI 26.4 Intake Visit Reasons: 2 week follow up Right GSV Venaseal 05/01/23 Intake Note: follow up Right GSV Venaseal 05/01/23, pt states she has been walking more and has lost some weight, leg feels good, still has some buldging VV on Right LE Accompanied by: Self / Same As Patient Allergies Latex, Natural Rubber [LATEX, NATURAL RUBBER] Allergy (Intermediate, Verified 06/01/23 13:11) RASH HPI 2 week follow up Right GSV Venaseal 05/01/23 HPI Details Very pleasant 87-year-old female presents for follow-up status post right great saphenous vein ablation. She reports in general in improvement. Swelling and discomfort have decreased. She notes that she does have a right inner thigh varicosity which have been a source of discomfort for her. She now presents for routine postprocedure follow-up. She had a postprocedure ultrasound which was negative for DVT. [facility] Medical History Anxiety HTN (hypertension) Social History Alcohol intake: never Review of Systems Const Reports as per HPI ENT Reports no additional complaints Card Denies chest pain, Denies chest pain at rest and Denies chest pain with activity Resp Denies chest congestion and Denies cough GI Reports no additional complaints Musc Details: pain over varicosities, aching of lower extremities, swelling, cramping, heaviness and tiredness, itching Denies abnormal gait Skin/Breast Reports pruritus and Denies wounds Neuro Reports no additional complaints and Denies abnormal gait Psych Denies no additional complaints Physical Exam Vital Signs: BMI result Body Mass Index 26.4 Const General: cooperative, healthy appearing and comfortable Orientation/consciousness: oriented to person, oriented to place and oriented to time Neck Carotids: no bruits Chest Chest palpation & inspection: normal inspection of the chest and normal palpation of entire chest wall Resp Effort & Inspection: normal respiratory effort and able to speak in complete sentences Cardio Rate: regular rate Heart sounds: S1 normal heart sound present and S2 normal heart sound present Peripheral pulses: Peripheral pulses 2+ throughout GI Inspection: Yes normal to inspection Skin Other: +1 edema, large rope-like varicosities greater than 4 mm - right medial thigh General skin exam: dry skin Neuro General: oriented to person, oriented to place and oriented to time Extrem Right lower extremity: full ROM, normal capillary refill and edema Left lower extremity: full ROM, normal capillary refill and edema Psych Mental Status: mental status grossly normal Assessment & Plan Assessment & Plan (1) Varicose veins of right lower extremity with inflammation: Code(s): I83.11 - Varicose veins of right lower extremity with inflammation Plan: In short patient has done well with her right leg ablation. She does have this medial thigh which is not a source of discomfort for her. At the current time we did discuss routine conservative measures including compression elevation and exercise. She will follow up with us on an as-needed basis. Thank you for allowing us to assist in her care. If there are any questions or concerns please do not hesitate to contact us. The patient had an opportunity to ask questions regarding the treatment plan. All questions were answered. Imaging studies, laboratory studies and physical exam results were discussed and reviewed in detail. No major barriers to understanding were identified. The patient expressed understanding and agreement with the above treatment plan. The patient is aware they should contact our office by phone for worsening of the current condition or the appearance of new symptoms. Thank you for allowing me to participate in the vascular care of this patient. If you have any questions or concerns regarding the treatment for the above condition please do not hesitate to contact me. The office telephone contact is [phone]. This note is constructed using voice recognition software. While every effort has been made to ensure accuracy, ancillary services manager therapy errors may have been included. Thank you for allowing me to participate in the care of your patient. Yours sincerely, Kranthi Villalobos MD, FACS, R.P.V.I. Coding Level of Care Code Est Pt Level 4 (18980) Diagnoses Varicose veins of right lower extremity with inflammation I83.11
[2023-06-01 13:04] VITALS: BMI 26.4
== END 2023-06-01 13:27 | disposition home or self-care (01) ==
PROVIDERS: PCP Family Medicine; Visit Provider Surgery Vascular Surgery
DX: I83.11 Varicose veins of right lower extremity with inflammation (principal)
CPT/HCPCS: 99213

== ENCOUNTER → 2023-06-01 12:55 | Outpatient (BNVA) | payer MEDICARE, SELFPAY | PROVIDERS: PCP Family Medicine; Visit Provider Surgery Vascular Surgery | DX: I83.11 Varicose veins of right lower extremity with inflammation (principal) | CPT/HCPCS: 99212 ==

== ENCOUNTER 2023-11-23 11:05 | Outpatient (REF) | payer MEDICARE, SELFPAY ==
[2023-11-23 12:15] VITALS: BP 141/74; PULSE 71; RESP 18; TEMP 36.3; O2SAT 99
[2023-11-23 13:08] VITALS: BMI 25.7
== END 2023-11-23 11:06 | disposition home or self-care (01) ==
LOC: HO.MS 11:05
PROVIDERS: PCP Family Medicine; Visit Provider Ophthalmology
DX: L98.9 Disorder of the skin and subcutaneous tissue, unspecified (principal); Z53.9 Procedure and treatment not carried out, unspecified reason

== ENCOUNTER 2023-12-07 10:24 | Outpatient (REF) | payer MEDICARE, SELFPAY ==
[2023-12-07 12:30] VITALS: BP 190/80; PULSE 71; RESP 16; TEMP 36.8; O2SAT 98
[2023-12-07 15:45] VITALS: BMI 27.4
== END 2023-12-07 10:25 | disposition home or self-care (01) ==
LOC: HO.MS 10:24
PROVIDERS: PCP Family Medicine; Visit Provider Ophthalmology
PROC: (CPT 11642; principal; 2023-12-07 11:30)
DX: C44.319 Basal cell carcinoma of skin of other parts of face (principal); L98.8 Other specified disorders of the skin and subcutaneous tissue
CPT/HCPCS: 11642; 88305; 88331; 88332

== ENCOUNTER 2025-03-21 15:45 | Emergency (ER) | payer MEDICARE, SELFPAY ==
--- NOTE | ~2025-03-21 | CT_ITS ---
CLINICAL HISTORY: fall +HS CT cervical spine without contrast Comparison: None Findings: Mild multilevel anterolisthesis, degenerative. No fracture. No severe central spinal canal stenosis. No epidural hematoma. Normal thickness of the prevertebral soft tissues. Mild biapical scarring.. Impression: No acute findings. This document has been electronically signed by: Lakisha Rosario MD on 03/21/2025 17:38:56
--- NOTE | ~2025-03-21 | CT_ITS ---
CLINICAL HISTORY: fall w +HS CT head without contrast Comparison: None Findings: No acute hemorrhage. Basal ganglia calcifications. No extra-axial fluid collection. No hydrocephalus, mass-effect or herniation. Vance-white differentiation is maintained. There is patchy hypoattenuation of the periventricular and deep white matter, which is most likely the sequela of moderate chronic small vessel ischemic disease. No acute orbital pathology. Posterior parietal/occipital scalp hematoma measuring 1.3 cm in thickness with associated laceration. 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 No fracture. The visualized paranasal sinuses are predominantly clear. The mastoid air cells are clear. Impression: No acute intracranial findings. This document has been electronically signed by: Lakisha Rosario MD on 03/21/2025 17:47:03
[2025-03-21 16:03] VITALS: BP 170/76; BP 183/68; PULSE 79; PULSE 80; RESP 20; TEMP 37.1; O2SAT 97; O2SAT 99; BMI 29.2
[2025-03-21 16:11] VITALS: BP 183/68; PULSE 79; RESP 20; TEMP 37.1; O2SAT 97
--- NOTE | 2025-03-21 16:23 | ED.HEATRA ---
HPI - Head Injury General Chief complaint: Head Injury Stated complaint: fall w/ head strike, -loc/thinners Time Seen by Provider: 03/21/25 15:53 Source: patient, EMS, RN notes reviewed and old records reviewed Mode of arrival: EMS History of Present Illness ED Provider: Asia Tobin PA-C HPI Narrative: 89-year-old female with a past medical history of anxiety, HTN, PAD, on 83 ASA presenting to the ED complaining of headache and head injury s/p mechanical trip and fall backwards onto asphalt after being scared by dog at the [facility]. States fell backwards after dog came towards her barking. Denies LOC. Denies neck/ back pain, CP/ SOB, lightheadedness /dizziness, vision change or loss, nausea or vomiting. Denies symptoms prior to fall. tetanus unknown Related Data Home Medications ?Medication ?Instructions ?Recorded ?Confirmed B-complex with vitamin C 1 cap PO DAILY 02/17/23 aspirin 81 mg chewable tablet 81 mg PO DAILY 02/17/23 cholecalciferol (vitamin D3) 10 10 mcg PO DAILY 02/17/23 mcg (400 unit) capsule flaxseed oil 1,000 mg capsule 1,000 mg PO DAILY 02/17/23 hydrochlorothiazide 12.5 mg capsule mg PO 02/17/23 multivitamin 1 tab PO DAILY 02/17/23 paroxetine HCl 10 mg tablet 10 mg PO DAILY 02/17/23 pravastatin 10 mg tablet 10 mg PO DAILY 02/17/23 Previous Rx's ?Medication ?Instructions ?Recorded amlodipine 2.5 mg tablet (Norvasc) 2.5 mg PO DAILY #20 tabs 01/28/21 acetaminophen 500 mg tablet 500 mg PO Q6H PRN fever or pain 03/21/25 (Tylenol Extra Strength) #14 tabs bacitracin 500 unit/gram topical 1 appl topical BID #30 grams 03/21/25 ointment Allergies Allergy/AdvReac Type Severity Reaction Status Date / Time Latex, Natural Rubber Allergy Intermediate RASH Verified 03/21/25 16:09 [LATEX, NATURAL RUBBER] Review of Systems Review of Systems: Yes all other systems are reviewed and are negative Constitutional: Constitutional: Reports as per HPI Neurologic: Denies Abnormal speech present PMFSH Past Medical History Attestation statement: The following information was validated with the patient. Source: old records reviewed Medical History Anxiety HTN (hypertension) Social History Social History Unable to assess alcohol history related to: Unknown Alcohol intake: never Smoked in Last 30 Days: No Use of substances other than those prescribed or required for medical reasons: No Advance Directives: No Advance Directives Information Provided: No Do you have a plan to hurt others: No Plan Physical Exam Vital Signs: Vital Signs: Last Vital Signs Temp 98.8 F 03/21/25 16:11 Pulse 79 03/21/25 16:11 Resp 20 03/21/25 16:11 BP 183/68 H 03/21/25 16:11 Pulse Ox 97 03/21/25 16:11 O2 Del Method Room Air 03/21/25 16:11 BMI result Body Mass Index 29.2 Const: General: cooperative, healthy appearing and no acute distress Orientation/consciousness: patient oriented x3 Limitations: no limitations HEENT: Other: Large hematoma noted to posterior scalp with overlying abrasion. Bleeding controlled at this time. no palpable step-off Head: Yes normal to inspection, Yes atraumatic, No Velez's sign and No raccoon eyes Ears: hearing grossly normal bilaterally General nose exam: Normal external nose present Face and sinus: Yes normal facial exam Mouth: Normal oral and palatal mucosa present and no drooling Throat: Yes posterior oropharynx normal Eyes: General: appearance normal, both eyes and all related structures Pupils: Equal, round and reactive pupils present EOM: EOMs intact bilaterally Neck: Neck: Yes normal visual inspection, Yes no meningeal signs and No anterior neck swelling Resp: Effort & Inspection: normal respiratory effort and no respiratory distress Cardio: Rate: regular rate GI: Inspection: Yes normal to inspection Palpation (GI): Soft to palpation, nontender, no guarding and not rigid Back/Spine/Pelvis: Other: No midline cervical/thoracic/lumbar spinous tenderness/step-off or deformity Skin: Rashes: no rashes Neuro: General: patient oriented x3, tone normal, moves all extremities, no meningeal signs, no focal motor deficits and CN's II-XI intact bilaterally Cranial nerves: Yes CN's II-XII intact bilaterally, Yes Equal, round and reactive pupils present and Yes Bilaterally intact EOM present Cognition (Neuro): normal cognition Speech: No Abnormal speech present Motor exam (neuro): 5/5 motor strength present throughout Extrem: General: Yes normal to inspection Course Course Course Narrative: 1749--CT head/brain wo IV con Impression: No acute intracranial findings. CT cervical spine wo IV con Impression: No acute findings. Results discussed with patient including worrisome signs and symptoms and strict return precautions, and when to return to the emergency department. They verbalized understanding and feel safe for discharge at this time. Medical Decision Making Medical Decision Making [facility] Narrative: 89-year-old female with a past medical history of anxiety, HTN, PAD, on 83 ASA presenting to the ED complaining of headache and head injury s/p mechanical trip and fall backwards onto asphalt [facility] on exam vital signs stable, NAD, nontoxic appearing, physical exam as noted above with large hematoma noted to posterior scalp with overlying abrasion. No open laceration. No focal deficits. No midline spinous tenderness. Concern for ICH vs fractures. Plan: CT head/ C-spine, wound care Please refer to course for remaining clinical decision making, interpretation of labs/imaging results, and discussions with consultants and/or family members. Differential Diagnosis Differential Diagnoses: The differential diagnosis associated with the presentation includes As above Admission/Observation Consideration of admission/observation: Escalation of care including admission/observation considered Lab Data MDM Lab Attestation statement: I reviewed the patient's lab results. Independent Interpretation I performed an independent interpretation of an: CT Scan Radiology Impression Discussion of test interpretation with radiology: I have reviewed the radiologist's reading. Independent Historian Clinical information obtained from an independent historian. History obtained from or confirmed by: EMS External Record Review External record reviewed: Inpatient record, Office record, Outpatient record, Prior outpatient labs, Prior outpatient radiology, Primary care record and Outside ED record Tests considered The following testing was considered but not selected: As above Prescription Management I considered prescription management with: Pain Medication Chronic Conditions Patient?s care impacted by: Other Social Determinants Patient?s care significantly limited by Social Determinants of Health including: Other Social Determinant of Health Discharge Plan Discharge Clinical Impression: Head injury, Hematoma Patient Disposition: Home, Self-Care Instructions: Head Injury (DC) Additional Instructions: CAT scan of your head and neck do not show any fractures or internal bleeding. No acute findings. You do have a large scalp hematoma. Apply ice Take Tylenol for pain Apply topical triple antibiotic ointment or bacitracin to your abrasion If you have constant or worsening headache, develop weakness, vision change or loss, persistent nausea or vomiting return to the ED immediately Please have close follow up with her primary care doctor Prescriptions: New bacitracin 500 unit/gram ointment 1 appl topical BID Qty: 30 0RF acetaminophen [Tylenol Extra Strength] 500 mg tablet 500 mg PO Q6H PRN (Reason: fever or pain) Qty: 14 0RF No Action amlodipine [Norvasc] 2.5 mg tablet 2.5 mg PO DAILY Qty: 20 0RF hydrochlorothiazide 12.5 mg capsule PO pravastatin 10 mg tablet 10 mg PO DAILY paroxetine HCl 10 mg tablet 10 mg PO DAILY aspirin 81 mg tablet,chewable 81 mg PO DAILY B-complex with vitamin C Capsule 1 cap PO DAILY cholecalciferol (vitamin D3) 10 mcg (400 unit) capsule 10 mcg PO DAILY flaxseed oil 1,000 mg capsule 1,000 mg PO DAILY Rx Instructions: administer with a meal multivitamin Tablet 1 tab PO DAILY Referrals: Physician,Nonstaff [Primary Care Provider] - 1 week Print Language: Bulgarian
--- NOTE | 2025-03-21 16:37 | PC.NURSE ---
89 F presents to ED following a fall outside of a hair salon, head strike on step outside building when she was spooked by a barking dog. A+OX4, follows commands, and answers appropriately. Pt hit the back of her head and has a golf ball size hematoma. Bleeding has stopped at this time. Pt c/o 6/10 pain in the back of her head, with a headache developing. Pt denies SOB or CP, RR even and unlabored. 18G IV in LAC from EMS.
[2025-03-21 18:48] VITALS: BP 183/68; PULSE 79; RESP 20; TEMP 37.1; O2SAT 97
[2025-03-21 18:50] VITALS: BP 146/60; PULSE 88; RESP 14; O2SAT 98
--- OUTSIDE RECORDS SUMMARY | 2025-03-21 19:07 | XMS_ITS | Patient Health Record ---
Author Organization [facility] Address [address] [place] [address] Care Team Providers Care Congressional Representative Name Role Phone Adrian Owens MD Primary Care Provider Ronal Johnson Unavailable [phone] Allergies Allergen (clinical drug ingredient) Drug/Non Drug Allergy documented on EMR Reaction Allergy Type Onset Date Status codeine Codeine weird feeling Drug Allergy Act edi latex rash Drug Allergy Active Reason For Referral No Information Medications Medication SIG (Take, Route, Frequency, Duration) Notes Start Date End Date Status vitamin Active Pravastatin Sodium 20 MG 1 tablet Orally Once a day Active Ranitidine & Diet Manage Prod 150 MG Orally Active PARoxetine HCl 20 MG 1 tablet in the mor ildefonso Orally Once a day Active Aspirin Adult Low Strength 81 MG 1 tablet Orally Once a day Active Calcium + D Active Problems Problem Type SNOMED Code ICD Code Onset Dates Problem Status W/U Status Risk Notes Problem Disorder of joint of ankle and/or foot (510665422) Arthritis - Degenerative (719.97) Active confirmed Problem Pain in limb (92219479) Pain in Limb (729.5) Active confirmed Problem Stress fracture (05732349) Stress fx (733.94) Active confirmed Plan Of Treatment No Information Insurance Providers Payer Name Payer Address Payer Phone Subscriber Number Group Number Insured Name Patient Relationship to Insured Coverage Start Date Coverage End Date [facility] [place] [facility] Medicare Preferred [address] [place] [address] [id number] Melvi Mendez Self - patient is the insured Medical (General) History Medical History History ICD Code Anxiety osteoarthritis Back,Hip,and Knee pain Osteopenia Poor circulation Reflux Sciatica Vascular phlebitis (clots) Measles Surgical History Surgery Date(Month/Year) fibroid removal breast L1961/ R1983 vein ligation 1975 hysterectomy 1980 cataract surgery 2011 carotid surgery ?2007
== END 2025-03-21 18:50 | disposition home or self-care (01) ==
PROVIDERS: Emergency Provider Emergency Medicine Emergency Medical Services
DX: S00.03XA Contusion of scalp, initial encounter (principal); M54.2 Cervicalgia; R51.9 Headache, unspecified; X58.XXXA Exposure to other specified factors, initial encounter; Y93.9 Activity, unspecified; Y92.9 Unspecified place or not applicable; Y99.8 Other external cause status; Z79.899 Other long term (current) drug therapy
CPT/HCPCS: 70450; 72125; 99284

== ENCOUNTER → 2025-03-21 16:21 | Outpatient (BNV) | payer MEDICARE, SELFPAY | PROVIDERS: Emergency Provider Emergency Medicine Emergency Medical Services; Visit Provider Radiology Diagnostic Radiology | DX: S09.90XA Unspecified injury of head, initial encounter (principal); W19.XXXA Unspecified fall, initial encounter | CPT/HCPCS: 70450; 72125 ==